=== PATIENT | male | born 1965 | race Caucasian/White ===

== ENCOUNTER 2022-03-02 13:08 | Observation (INO) ==
[2022-03-02] MEDS ORDERED: Ondansetron 4 mg VIAL 2 MG/ML 2 ml VIAL IV ONE (13:20)
[2022-03-02 14:20] LABS: ABS Lymphocytes 0.4 10^3/ul (1.0-4.8); ABS Monocytes 0.6 10^3/ul (0-0.8); ABS Neutrophils 15.3 10^3/ul (1.5-7.7); Hematocrit 43 % (42-52); Hemoglobin 14.6 g/dL (14.0-18.0); Lymphocyte % 2.7 %; Mean Corpuscular HGB Conc 34 g/dL (31-36); Mean Corpuscular Hemoglobin 30 pg (27-31); Mean Corpuscular Volume 89 fL (80-94); Mean Platelet Volume 8.8 fL (7.4-10.4); Platelet Count 245 10^3/uL (150-450); Red Blood Count 4.87 10^6 /uL (4.18-5.48); Red Cell Distribution Width 13 % (10-15); White Blood Count 16.4 10^3/uL (3.5-10.8)
[2022-03-02 15:10] LABS: Albumin 4.4 g/dL (3.2-5.2); Calcium 9.1 mg/dL (8.6-10.3); Globulin 2.2 g/dL (2-4); Potassium 4.2 mmol/L (3.5-5.0); Total Bilirubin 1.2 mg/dL (0.2-1.0); Total Protein 6.6 g/dL (6.4-8.9); eGFR CKD-EPI 95.2 (>60)
[2022-03-02] MEDS ORDERED: Piperacillin/Tazobac ADVAN 3.375 GM in NS 0.9% 100 ml BAG 100 ML IV ONE (15:45)
[2022-03-02] MEDS ORDERED: Ondansetron 4 mg VIAL 2 MG/ML 2 ml VIAL IV PRN (16:45)
[2022-03-02] MEDS ORDERED: Morphine 2 MG/ML SYRINGE IV PRN (16:52)
[2022-03-02] MEDS ORDERED: Zosyn per Pharmacy NOTE FOLLOW UP SCH (17:00)
[2022-03-02] MEDS: NS 0.9% 1000 ml BAG 1,000 ML IV SCH (19:00)
[2022-03-02] MEDS: ZOSYN 3.375 GM Q8H per EXTENDED INFUSION IV SCH (19:58)
[2022-03-03] MEDS: ZOSYN 3.375 GM Q8H per EXTENDED INFUSION IV SCH ×2 (04:36→17:20)
[2022-03-03] MEDS: NS 0.9% 1000 ml BAG 1,000 ML IV SCH ×2 (04:37→17:54)
[2022-03-03 06:26] LABS: ABS Eosinophils 0.1 10^3/ul (0-0.6); ABS Lymphocytes 1.1 10^3/ul (1.0-4.8); ABS Neutrophils 8.8 10^3/ul (1.5-7.7); Eosinophil % 0.8 %; Hematocrit 40 % (42-52); Hemoglobin 13.7 g/dL (14.0-18.0); Lymphocyte % 9.9 %; Mean Corpuscular HGB Conc 35 g/dL (31-36); Mean Corpuscular Hemoglobin 31 pg (27-31); Mean Corpuscular Volume 89 fL (80-94); Mean Platelet Volume 9.1 fL (7.4-10.4); Platelet Count 214 10^3/uL (150-450); Red Blood Count 4.46 10^6 /uL (4.18-5.48); Red Cell Distribution Width 13 % (10-15); White Blood Count 10.9 10^3/uL (3.5-10.8)
[2022-03-03 06:56] LABS: Albumin 3.7 g/dL (3.2-5.2); Albumin/Globulin Ratio 1.7 (1-3); Calcium 8.4 mg/dL (8.6-10.3); Globulin 2.2 g/dL (2-4); Potassium 3.9 mmol/L (3.5-5.0); Total Bilirubin 1.4 mg/dL (0.2-1.0); Total Protein 5.9 g/dL (6.4-8.9); eGFR CKD-EPI 85.2 (>60)
[2022-03-03] MEDS ORDERED: Buffered Lidocaine 1% SYRIN 1 ml INTRADERM ONE (09:24)
[2022-03-03] MEDS ORDERED: Lactated Ringers 1000 ml BAG 1,000 ML IV SCH (10:00)
[2022-03-03] MEDS ORDERED: Bupivacaine 0.25% w/EPI 10 ML SDV ONE ×2 (11:35)
[2022-03-03] MEDS ORDERED: Iohexol 180 (CONTRAST) 20 ML SDV IV ONE (11:35)
[2022-03-03] MEDS ORDERED: fentaNYL 100 mcg/2 ml 50 MCG/ML VIAL ONE ×3 (12:05→14:11)
[2022-03-03] MEDS ORDERED: Midazolam 2 mg/2 ml VIAL 1 mg/ml 2 ml VIAL (2 mg) ONE (12:05)
[2022-03-03] MEDS ORDERED: Propofol 10 MG/ML 20 ML BTL ONE (12:21)
[2022-03-03] MEDS ORDERED: Dexamethasone IV 4 MG/ML VIAL 1 ml VIAL ONE ×2 (12:21→12:34)
[2022-03-03] MEDS ORDERED: Rocuronium 50 mg VIAL 10 mg/ml 5 ml VIAL (50 mg) ONE ×2 (12:21→13:40)
[2022-03-03] MEDS ORDERED: Ondansetron 4 mg VIAL 2 MG/ML 2 ml VIAL ONE (12:21)
[2022-03-03] MEDS ORDERED: fentaNYL 100 mcg/2 ml 50 MCG/ML VIAL IV PRN (12:58)
[2022-03-03] MEDS ORDERED: Ondansetron 4 mg VIAL 2 MG/ML 2 ml VIAL IV PRN (12:58)
[2022-03-03] MEDS ORDERED: Naloxone 0.4 mg VIAL 0.4 mg/ml 1 ml VIAL IV PRN (12:58)
[2022-03-03] MEDS ORDERED: Acetaminophen IV 1 GM/100ML 100 ML IV ONE (13:57)
[2022-03-03] MEDS: ZOSYN 3.375 GM x ONE DOSE over 30 miuntes IV ×2 (19:34→19:37)
[2022-03-04] MEDS: ZOSYN 3.375 GM Q8H per EXTENDED INFUSION IV SCH ×2 (00:35→08:08)
[2022-03-04] MEDS: NS 0.9% 1000 ml BAG 1,000 ML IV SCH ×2 (04:44→12:15)
[2022-03-04 11:23] VITALS: BP 137/80
== END 2022-03-04 17:15 | disposition home or self-care (01) ==
LOC: ED 13:08 → SUATTDRO 17:18 → INTOOBSV 17:18 → EDHOLD 17:18 → SSU 19:21
PROVIDERS: ADMIT Surgery; ATTEND Surgery